=== PATIENT | female | born 1980 | race Caucasian/White ===

== ENCOUNTER → 2018-08-22 12:41 | Outpatient (CLI) | payer BC, SELFPAY ==
--- NOTE | 2018-08-22 12:49 | BI_ITS ---
MAMMOGRAPHY - BILATERAL SCREENING REASON FOR EXAM: Female, 38 years old. Routine annual screening examination. PERTINENT HISTORY: Sister with breast cancer. TECHNIQUE: Digital bilateral breast lin (3D mammographic acquisition) in the CC and MLO projections. 2-D mediolateral oblique (MLO) and craniocaudad (CC) views of both breasts were obtained. CAD: Full Field Digital Mammography with Computer Added Detection was performed. COMPARISON: Comparison is made with prior ocular examination dated February 20, 2017. FINDINGS: Breast Composition: There are scattered areas of fibroglandular density. There are no dominant masses or suspicious calcifications. No other significant abnormalities are identified. There has been no significant change since the prior study. BI/SCREENING MAMM (CAD), BILAT IMPRESSION: Stable bilateral screening mammogram. Yearly follow-up mammogram recommended. (A) ASSESSMENT CATEGORY: BIRADS Category 1: Negative. A letter regarding these results will be sent to the patient by the facility within 30 days. Approximately 10% of breast cancers are not detected by mammography. A normal mammogram should not delay biopsy of a clinically suspicious abnormality. [id number] Electronically Signed: Kyle Pitt MD at 14:26 EST Tel [phone], Service support ,
== END ==
PROVIDERS: Family Provider Nurse Practitioner Family; PCP Nurse Practitioner Family; Referring Provider Obstetrics & Gynecology; Visit Provider Obstetrics & Gynecology
DX: Z12.31 Encounter for screening mammogram for malignant neoplasm of breast (principal); Z80.3 Family history of malignant neoplasm of breast
CPT/HCPCS: 77063; 77067

== ENCOUNTER 2021-10-18 15:44 | Emergency (ER) | payer BC, SELFPAY ==
[2021-10-18 15:45] VITALS: BP 133/92; PULSE 91; RESP 15; TEMP 36.2; O2SAT 97; BMI 33.0
--- NOTE | 2021-10-18 15:59 | EKG12_ITS ---
Test Reason : SOB Blood Pressure : / mmHG Vent. Rate : 081 BPM Atrial Rate : 081 BPM P-R Int : 110 ms QRS Dur : 082 ms QT Int : 396 ms P-R-T Axes : 043 008 031 degrees QTc Int : 460 ms Sinus rhythm with short [place] Otherwise normal ECG Confirmed by DARIA FELTON, TYRELL ([id number]), editor news PINO GOULD ([id number]) on 10/19/2021 11:11:53 AM Referred By: SHASHANK Confirmed By:REGINA HUFF MD
--- NOTE | 2021-10-18 15:59 | CT_ITS ---
STUDY: CTA CHEST REASON FOR EXAM: Female, 41 years old. covid 19 hemoptysis RADIATION DOSAGE (If Supplied By Facility): CTDIvol = ( 11.77 ) mGy, DLP = ( 449.20 ) mGycm TECHNIQUE: The examination was performed with the intravenous administration of IV 100mL Isovue-370. Post-processing of the angiographic images was performed, with multiplanar reformation and 3D reconstruction. Individualized dose optimization techniques were used for this CT. COMPARISON: None. FINDINGS: Normal enhancement of the main pulmonary artery and right and left pulmonary arteries. Normal enhancement of the bilateral peripheral pulmonary arteries. There is no demonstrated pulmonary embolism. Normal thoracic aorta and visualized great vessels. There is no demonstrated aortic dissection. Normal heart and pericardium. Normal mediastinum. Normal hilar regions. Normal visualized trachea and bronchi. The lungs are well expanded. Normal pulmonary parenchyma. Normal pleura. Normal chest wall structures. There are degenerative changes of thoracic spine. Normal visualized upper abdomen. CT/CTA Chest W/WO Contrast IMPRESSION: Normal CTA chest examination, without a demonstrated pulmonary embolism or arterial dissection. Electronically Signed: Agustin Reddy MD at 16:49 EST ,
--- NOTE | 2021-10-18 16:00 | ED.VIS.DYS ---
HPI History of Present Illness Chief Complaint: Cough Informant: patient Narrative Narrative: 41-year-old female presenting to the emergency department on day 8 of COVID-19 with hemoptysis. Patient states that she developed symptoms last Saturday. She states that she did a virtual visit with one of her doctors today and she noted hemoptysis and they recommended she come to the emergency for a CAT scan. Patient has no history of DVT or PE. She notes that the hemoptysis is usually streaky and not all the time. She is not currently on dexamethasone or any other therapies for COVID-19. She was vaccinated and received a booster shot. PFSH PFSH Home Medications vit,[id number] [Prenatabs FA] 1 tab PO DAILY 12/06/13 [History Last Taken 11/26/13 1] ibuprofen 600 mg PO Q6H PRN PRN #60 tablet 12/08/13 [Rx Last Taken Unknown] oxycodone-acetaminophen 1 - 2 tab PO Q6H PRN PRN #40 tab 12/08/13 [Rx Last Taken Unknown] dexamethasone 6 mg PO DAILY #7 tab 10/18/21 [Rx Last Taken Unknown] Allergy/AdvReac Type Severity Reaction Status Date / Time strawberry [[place]] Allergy Intermediate Hives Verified 10/18/21 15:45 Social History (Updated 10/18/21 @ 16:[address] Shabbir Ambrosio, ) Smoking Status: Never smoker substance use type: does not use ROS ROS ED Constitutional Constitutional ED: Reports fever(s); Denies chills or weight loss Eyes Eyes: Denies change in vision or diplopia ENT ENT ED: Denies ear pain, rhinorrhea or sore throat Cardiovascular Cardiovascular: Reports chest pain; Denies orthopnea, palpitations or racing heartbeat Respiratory/Chest Respiratory/Chest: Reports cough, dyspnea, sputum and other; Denies orthopnea Gastrointestinal Gastrointestinal: Denies abdominal pain, diarrhea, nausea or vomiting Genitourinary Genitourinary ED: Denies dysuria, hematuria or urinary frequency Musculoskeletal Musculoskeletal: Denies arthralgias or myalgias Integumentary Denies abscess or rash Neurologic Neurologic: Denies headache(s) or weakness Psychiatric Psychiatric: Denies anxiety, depression, suicidal ideation or suicidal thoughts Endocrine Endocrinology: Denies polydipsia, polyphagia or polyuria Allergic/Immunologic Allergic/Immunologic ED: Denies mouth swelling, tongue swelling or urticaria EXAM Physical Exam Const Vital Signs: 10/18/21 15:45 Temperature 97.2 F L Temperature Source Temporal Pulse Rate 91 Respiratory Rate 15 Blood Pressure 133/92 H Blood Pressure Mean 105 Pulse Ox 97 Oxygen Delivery Method Room Air Positive well nourished and well developed General Appearance ED: well developed HEENT Reports normocephalic, head/scalp atraumatic and moist mucous membranes Eyes PERRL and EOMs intact bilaterally Neck no lymphadenopathy, supple and no JVD Resp normal respiratory effort and clear to auscultation bilaterally Cardio regular rate, regular rhythm and no murmurs GI normal to inspection, nondistended, normoactive bowel sounds and non-tender Palpation: soft Back/Spine no CVA tenderness and normal ROM Extremity normal to inspection General Extremety ED: Negative for edema General Extremity: Negative for edema Neuro oriented x3 and CN's II-XII intact bilaterally Sensorium / Orientation: alert Motor Exam: strength 5/5 throughout Psych mental status grossly normal Mood & Affect: Negative for depressed or tearful Skin no rashes or lesions noted and no wounds MDM MDM MDM Narrative Medical decision making narrative: Basic labs will be obtained as well as a CTA of the chest. Care of the patient will be checked out to the oncoming physician. There is no pulmonary embolism the plan will be to discharge the patient home with dexamethasone. Discharge Plan Triage Chief Complaint: Cough ED Provider: Shabbir Ambrosio Dx/Rx/DC Orders Clinical Impression: COVID-19, Cough with hemoptysis Instructions: Coronavirus Disease 2019 (COVID-19): Caring for Yourself or Others, COVID-19: Lying in a Prone Position (Proning) Prescriptions: New dexamethasone 6 MG tablet 6 mg PO DAILY Qty: 7 RF: 0 No Action vit,[id number] [Prenatabs FA] 1 TABLET tablet 1 tab PO DAILY RF: 0 oxycodone-acetaminophen 1 TABLET tablet 1 - 2 tab PO Q6H PRN PRN (Reason: Pain) Qty: 40 RF: 0 ibuprofen 600 MG tablet 600 mg PO Q6H PRN PRN (Reason: Pain) Qty: 60 RF: 1 Primary Care Provider: Darryn Tobar NP Referrals: Darryn Tobar NP, [facility] [facility] [Primary Care Provider] - As Needed Disposition Disposition: Home, Self Care
[2021-10-18 16:26] LABS: Absolute Lymphocyte Count 1.25 X10^3/uL (0.83-4.51); Absolute Neutrophil Count 2.5 X10^3/uL (2.0-7.7); Basophil# 0.01 X10^3/uL; Basophil% 0.2 % (0-1); Eosinophils% 2.4 % (0-5); Hematocrit 38.5 % (37-47); Hemoglobin 12.7 g/dL (12.0-15.0); Lymphocyte # 1.25 X10^3/ul (0.83-4.51); Mean Corpuscular Hgb 28.3 pg (27.0-32.0); Mean Corpuscular Volume 85.9 fL (81-99); Mean Platelet Vol. 9.6 fl (6.2-12.0); Monocyte# 0.29 X10^3/uL; NRBC Flagged by Analyzer 0 % (0-5); Neutrophil # 2.51 X10^3/uL (2.7-7.7); Neutrophil % 60.2 % (47-70); Platelet Count 254 K/mm3 (150-450); RBC Distribution Width SD 37.8 fl (35.1-43.9); Red Blood Count 4.48 M/mm3 (4.2-5.4); White Blood Count 4.2 K/mm3 (4.4-11.0)
[2021-10-18 16:43] LABS: ALB/GLOB Ratio 0.8 RATIO (0.9-2.4); AST(SGOT) 12 U/L (15-37); Alanine Aminotransfer ALT/SGPT 26 U/L (13-56); Albumin, Serum 3.2 g/dL (3.2-5.0); Alkaline Phosphatase 80 U/L (45-117); Anion Gap 7 (5-15); BUN 8 mg/dL (7-18); BUN/Creat Ratio 9.8 RATIO (10-20); Calcium,Total 7.9 mg/dL (8.5-10.1); Chloride 107 mmol/L (98-107); Creatinine, Serum 0.82 mg/dL (0.55-1.02); EST Glomerular Filtration Rate 81 mL/min (>60); Est Glom Filt Rate - Afr Amer 98 mL/min (>60); Estimated Creatinine Clearance 82.81 ml/min; Glucose 98 mg/dL (74-106); Potassium 3.6 mmol/L (3.5-5.1); Protein, Total 7.2 g/dL (6.4-8.2); Sodium Level 139 mmol/L (136-145); Troponin-I HS 4 pg/mL (3.0-54.0)
[2021-10-18 17:16] VITALS: O2SAT 98
== END 2021-10-18 17:24 | disposition home or self-care (01) ==
LOC: ED 16:11
PROVIDERS: Emergency Provider Emergency Medicine; PCP Physician Assistant; Visit Provider Emergency Medicine
DX: U07.1 COVID-19 (principal); R04.2 Hemoptysis
CPT/HCPCS: 71275; 80053; 84484; 85025; 93005; 99283; Q9967; A4216

== ENCOUNTER → 2024-08-18 | Outpatient (CLI) | payer BC, SELFPAY ==
[2024-08-18 12:45] LABS: Anion Gap 4 (5-15); BUN 15 mg/dL (7-18); Chloride 105 mmol/L (98-107); Creatinine, Serum 0.83 mg/dL (0.55-1.02); EST Glomerular Filtration Rate 78 mL/min (>60); Est Glom Filt Rate - Afr Amer 95 mL/min (>60); Glucose 96 mg/dL (74-106); Potassium 3.6 mmol/L (3.5-5.1); Sodium Level 137 mmol/L (136-145)
== END | disposition home or self-care (01) ==
PROVIDERS: PCP Registered Nurse; Referring Provider Internal Medicine Cardiovascular Disease; Visit Provider Internal Medicine Cardiovascular Disease
DX: R94.39 Abnormal result of other cardiovascular function study (principal)
CPT/HCPCS: 36415; 80048

== ENCOUNTER → 2024-10-01 | Outpatient (CLI) | payer BC, SELFPAY ==
--- NOTE | 2024-10-01 12:27 | CT_ITS ---
STUDY: CT CHEST WITH CONTRAST REASON FOR EXAM: Female, 44 years old. CHEST PAIN W/ ABNORMAL GXT RADIATION DOSAGE (If Supplied By Facility): CTDIvol = ( 35.07 ) mGy, DLP = ( 2290.39 ) mGycm TECHNIQUE: Transaxial imaging was performed following intravenous administration of IV 77mL Isovue-370. Cardiac over read examination. Individualized dose optimization techniques were used for this CT. COMPARISON: Comparison is made with prior study dated October 18, 2021. FINDINGS: CHEST The lungs are normal. There is no demonstrated pleural abnormality. Normal heart and pericardium. No coronary artery calcification is seen. Normal mediastinum. Normal hilar regions. Normal unenhanced pulmonary arteries. Normal aorta arch and descending thoracic aorta. Normal osseous structures. Diffuse fatty infiltration of the liver. CT/Limited Chest CT Cardiac Only IMPRESSION: Lungs are clear. No coronary artery calcification is seen. Electronically Signed: Kyle Pitt MD at 14:21 EST ,
[2024-10-01 12:39] VITALS: BP 110/71; PULSE 69; RESP 18; TEMP 36.2; O2SAT 97; BMI 34.0
[2024-10-01 13:08] VITALS: BP 115/64; PULSE 75
[2024-10-01] MEDS: Nitroglycerin SL (ED/IMG/CATH) 0.4 MG TABLET SL (13:08)
[2024-10-01] MEDS: 0.9% Saline Lock 10 ML Syringe IV (13:17)
[2024-10-01 13:18] VITALS: BP 115/64; PULSE 72; RESP 18; O2SAT 97
--- NOTE | 2024-10-02 07:38 | CCTA.WCONT ---
CCTA w/Cont Coronary Arteries Date of Study:: 10/01/24 CP Coronary Calcium Scoring: High-resolution Computed Tomographic imaging of the chest was performed on [10/01/24 ], with particular attention paid to the coronary arteries. Intravenous contrast agent was administered per protocol and images reconstructed and displayed. LEFT MAIN CORONARY ARTERY: Arises from the left coronary cusp. No significant stenosis noted. [] LEFT ANTERIOR DESCENDING CORONARY ARTERY: Arises from the left main coronary artery. It gives off a first diagonal branch the vessel coursed towards the apex with no significant atherosclerotic plaquing noted [] LEFT CIRCUMFLEX CORONARY ARTERY: Nondominant vessel with no significant atherosclerotic plaquing noted. [] RIGHT CORONARY ARTERY: Dominant right coronary artery with no significant atherosclerotic plaquing and then terminally bifurcating to the posterior descending artery and posterolateral vessel. CORONARY CALCIUM SCORE: Not done Conclusion: CT angio demonstrating no significant atherosclerotic plaquing noted. []
== END | disposition home or self-care (01) ==
LOC: CT 12:26
PROVIDERS: PCP Registered Nurse; Referring Provider Internal Medicine Cardiovascular Disease; Visit Provider Internal Medicine Cardiovascular Disease
DX: R07.9 Chest pain, unspecified (principal); R94.39 Abnormal result of other cardiovascular function study